=== PATIENT | female | born 1995 | race Caucasian/White ===

== ENCOUNTER 2020-07-25 17:02 | Emergency (ER) | payer MEDICAID, OTHER ==
[~2020-07-25] VITALS: Ht 154.9 cm; Wt 48.9 kg
[2020-07-25 17:07] VITALS: BP 111/62
--- NOTE | 2020-07-25 17:35 | ED General ---
General Chief Complaint: Respiratory Problems Stated Complaint: SOB Source of Information: Patient History of Present Illness Date Seen by Provider: Jul 25, 2020 Time Seen by Provider: 17:06 Initial Comments 25-year-old female that is G3, P2 at approximately 19 weeks estimated gestational age presents with complaints of shortness of breath. She states she gets short of breath when she is out in the sun or around hot air. This has happened before with asthma for her in the past. Since the weather was getting warmer and she was having more episodes she had gone to the clinic today. She saw the nurse makayla and they gave her a prescription for an [facility]. [facility] She had called her [facility] doctor after that and Dr. Jackie Lerma who she sees in [place] had advised her to be seen in the emergency department to be rechecked. Patient has no swelling in her legs, tachycardia, fever, chills, shortness of breath now, cough, sinus drainage or congestion. She states she is only having the shortness of breath when she is out in the heat. Allergies and Home Medications Allergies Coded Allergies: No Known Drug Allergies (Unverified , 07/25/20) Patient Home Medication List Home Medication List Reviewed: Yes Review of Systems Review of Systems Constitutional: No chills, No dizziness, No fever EENTM: No nose congestion, No nose pain Respiratory: No hemoptysis, No orthopnea, No phlegm; short of breath (When out in the heat); No stridor, No wheezing Cardiovascular: No chest pain Gastrointestinal: No abdominal pain, No nausea, No vomiting Genitourinary: No dysuria, No frequency Musculoskeletal: No muscle pain Skin: No change in color, No rash Psychiatric/Neurological: Denies Anxiety, Denies Headache, Denies Numbness, Denies Paresthesia Hematologic/Lymphatic: Denies Blood Clots Past Alpkigr-Zpubjz-Huljwb Hx Past Med/Social Hx: Reviewed Nursing Past Med/Soc Hx Patient Social History Alcohol Use: Denies Use 2nd Hand Smoke Exposure: No Recent Hopitalizations: No Past Medical History Surgeries: No Cardiac: Yes Heart Murmur Genitourinary: No Gastrointestinal: No Musculoskeletal: No Endocrine: Yes (thyroid "slightly high") Cancer: No Psychosocial: No Integumentary: No Blood Disorders: No Physical Exam Vital Signs Vital Signs - First Documented 07/25/20 17:07 Pulse 80 Resp 20 B/P (MAP) 111/62 (78) Pulse Ox 97 O2 Delivery Room Air Capillary Refill : Height, Weight, BMI Height: '" Weight: lbs. oz. kg; BMI Method: General Appearance: No Apparent Distress, WD/WN HEENT: PERRL/EOMI Neck: Full Range of Motion, Normal Inspection, Non Tender, Supple Respiratory: Chest Non Tender, Lungs Clear, Normal Breath Sounds, No Accessory Muscle Use, No Respiratory Distress Cardiovascular: Regular Rate, Rhythm, Normal Peripheral Pulses Gastrointestinal: No Pulsatile Mass, Non Tender, Soft Extremity: Normal Capillary Refill, Normal Inspection, Normal Range of Motion, Non Tender, No Calf Tenderness, No Pedal Edema Neurologic/Psychiatric: Alert, Oriented x3, No Motor/Sensory Deficits, Normal Mood/Affect, case sealer II-XII Norm as Tested Skin: Normal Color, Warm/Dry Progress/Results/Core Measures Suspected Sepsis SIRS Temperature: Pulse: Respiratory Rate: Blood Pressure / Mean: Results/Orders Vital Signs/I&O 07/25/20 17:07 Pulse 80 Resp 20 B/P (MAP) 111/62 (78) Pulse Ox 97 O2 Delivery Room Air Capillary Refill : Progress Note : Progress Note Reassured patient that she had no signs of more severe breathing issues. She h ad no tachycardia, fever, shortness of breath here in the ER, hypoxia, wheezing. Advised to use an inhaler with spacer. Check back with her OB doctor as scheduled next Thursday. If she starts having fevers, shortness of breath other than when she is exposed to hot air and heat, or she cannot catch her breath be seen sooner Departure Impression Primary Impression: Shortness of breath Additional Impressions: Incidental History of asthma Disposition: HOME, SELF-CARE Condition: Stable Departure-Patient Inst. Decision time for Depature: 17:34 Referrals: HOUSTON VERA APRN (PCP) Primary Care Physician [facility] (Family) Primary Care Physician Patient Instructions: Asthma and , How to Use a Spacer, Shortness of Breath, Adult ED Add. Discharge Instructions: Use spacer with your Albuterol inhaler to help with shortness of breath. You could use 2 puffs every 4-6 hours as needed for shortness of breath/wheezing. Check back with clinic as scheduled on ThursdayAugust 01. Follow up sooner if having more problems All discharge instructions reviewed with patient and/or family. Voiced understanding. CHAN ACOSTA MD Jul 25, 2020 17:35
== END 2020-07-25 17:43 | disposition home or self-care (01) ==
LOC: ER FS 17:04
DX: O26.892 Other specified pregnancy related conditions, second trimester (principal); R06.02 Shortness of breath; O99.512 Diseases of the respiratory system complicating pregnancy, second trimester; J45.909 Unspecified asthma, uncomplicated; Z3A.19 19 weeks gestation of pregnancy
CPT/HCPCS: 99282

== ENCOUNTER 2020-09-30 01:57 | Emergency (ER) | payer MEDICAID ==
[2020-09-30 02:26] LABS: BACTERIA,URINE FEW /HPF; BILIRUBIN,URINE NEGATIVE (NEGATIVE); CLARITY,URINE CLEAR; COLOR,URINE YELLOW; GLUCOSE, URINE (UA) NEGATIVE (NEGATIVE); KETONES,URINE NEGATIVE (NEGATIVE); LEUKOCYTE ESTERASE ,URINE 2+ (NEGATIVE); NITRITE,URINE NEGATIVE (NEGATIVE); PROTEIN,URINE NEGATIVE (NEGATIVE); URINE OTHER SPERM PRESENT /HPF
--- NOTE | 2020-09-30 02:28 | ED GU-Female ---
General Chief Complaint: OB > 20 WEEKS Stated Complaint: POSS LABOR/28 WEEKS Nursing Triage Note: Pt states she is 28 weeks and has been having more neo lucero contractions than normal tonight and wanted to get checked out Source: patient Exam Limitations: no limitations History of Present Illness Date Seen by Provider: Sep 30, 2020 Time Seen by Provider: 02:15 Initial Comments 25-year-old female otherwise healthy with no significant past medical history that is coming in 28 weeks by LMP and ultrasound due to contractions. She states this started around 11 PM, she feels in the front her abdomen, and they feel similar to Neo Lucero. She said however she is having greater than 5/h for the past 3 hours and she was referred to go to the emergency department. She denies any loss of fluid like her water broke or any vaginal bleeding. She is feeling good movement. This has been a healthy with no complications thus far. She gets her care at [facility] in [place]. Both her prior pregnancies were vaginal deliveries without issue, the babies did not stay in the NICU, and the second baby was just 1 day . She typically has a long labor. She states she is unsure if this feels like labor given it was so long ago. Denies any chest pain, shortness of breath, current abdominal pain, nausea, vomiting, diarrhea, fever, chills, weakness, numbness, or any other concerns. Allergies and Home Medications Allergies Coded Allergies: No Known Drug Allergies (Unverified , 07/25/20) Home Medications Nitrofurantoin Monohyd/M-Cryst 100 Mg Capsule, 100 MG PO BID Prescribed by: CLAUDIA SORENSEN on 09/30/20 0356 Patient Home Medication List Home Medication List Reviewed: Yes Review of Systems Review of Systems Constitutional: No fever EENTM: No blurred vision Respiratory: No cough Cardiovascular: No chest pain Gastrointestinal: No abdominal pain, No diarrhea, No nausea, No vomiting Genitourinary: denies burning, denies dysuria, denies frequency Musculoskeletal: No back pain Skin: No rash Psychiatric/Neurological: Denies Anxiety, Denies Depressed Endocrine: No Symptoms Reported Hematologic/Lymphatic: No Symptoms Reported All Other Systemes Reviewed Negative Unless Noted: Yes Past Xmqjzgx-Ynuopx-Ihueal Hx Patient Social History Tobacco Use?: No Use of E-Cig and/or Vaping dev: No Substance use?: No Alcohol Use?: No Pt feels they are or have been: No Past Medical History Surgeries: No Cardiac: Yes Heart Murmur Genitourinary: No Gastrointestinal: No Musculoskeletal: No Endocrine: Yes (thyroid "slightly high") Cancer: No Psychosocial: No Integumentary: No Blood Disorders: No Physical Exam Vital Signs Vital Signs - First Documented 09/30/20 02:02 Pulse 85 Resp 18 B/P (MAP) 106/72 (83) Pulse Ox 100 O2 Delivery Room Air Capillary Refill : Less Than 3 Seconds Height, Weight, BMI Height: '" Weight: lbs. oz. kg; 20.00 BMI Method: General Appearance: WD/WN, no apparent distress HEENT: PERRL/EOMI, normal ENT inspection, pharynx normal Neck: non-tender, full range of motion, supple, normal inspection Cardiovascular: regular rate, rhythm, no murmur Respiratory: chest non-tender, lungs clear, normal breath sounds, no respiratory distress, no accessory muscle use Gastrointestinal: normal bowel sounds, non tender, soft, other (gravid uterus) Pelvic: normal external exam, other (dilated to a 3, 0% effaced, -4 station) Back: normal inspection Extremities: normal range of motion, non-tender, no calf tenderness Neurologic/Psychiatric: no motor/sensory deficits, alert, normal mood/affect Skin: normal color, warm/dry Lymphatic: no adenopathy Progress/Results/Core Measures Suspected Sepsis SIRS Temperature: Pulse: 85 Respiratory Rate: 18 Blood Pressure 106 /72 Mean: 83 Results/Orders Lab Results Laboratory Tests Test 09/30/20 02:09 Range/Units Urine Color YELLOW Urine Clarity CLEAR Urine pH 8.0 5-9 Urine Specific Jay 1.010 L 1.016-1.022 Urine Protein NEGATIVE NEGATIVE Urine Glucose (UA) NEGATIVE NEGATIVE Urine Ketones NEGATIVE NEGATIVE Urine Nitrite NEGATIVE NEGATIVE Urine Bilirubin NEGATIVE NEGATIVE Urine Urobilinogen 0.2 < = 1.0 MG/DL Urine Leukocyte Esterase 2+ H NEGATIVE Urine RBC (Auto) NEGATIVE NEGATIVE Urine RBC NONE /HPF Urine WBC 5-10 H /HPF Urine Squamous Epithelial Cells 5-10 /HPF Urine Crystals NONE /LPF Urine Bacteria FEW H /HPF Urine Casts NONE /LPF Urine Mucus NEGATIVE /LPF Urine Other SPERM PRESENT /HPF Urine Culture Indicated YES My Orders Orders - CLAUDIA SORENSEN MD Ua Culture If Indicated (09/30/20 02:12) Urine Culture (09/30/20 02:09) Vital Signs/I&O 09/30/20 09/30/20 02:02 03:36 Pulse 85 85 Resp 18 18 B/P (MAP) 106/72 (83) 106/72 (83) Pulse Ox 100 100 O2 Delivery Room Air Room Air Capillary Refill : Less Than 3 Seconds Blood Pressure Mean: 83 Progress Note : Progress Note 25-year-old female with above history coming in with what she feels to be contractions. ABCs were intact and vitals were stable on presentation. Spec ifically, blood pressure is not elevated. Abdomen is gravid but nontender. I did a [id number] ultrasound showing a heart rate in the 140s for the baby with head down, and no evidence of placenta previa. I did a sterile pelvic exam with no pooling of fluids and cervix appeared to be 3cm. Rechecked again over an hour later and it appeared the same. She is not having consistent organized contractions and this is not consistent with labor at this time. We discussed shared decision making and I gave her the option to transport her to her hospital for extended monitoring vs going home. She would like to go home at this time, and will call 911 or come back if things change. I believe this is an appropriate decision. I did discuss that even if she does not come back here, she should call her OB first thing in the next couple of hours in the morning time to discuss her care and potentially be seen. I believe she is stable for discharge. She was sent home with strict return precautions. Of note, I reviewed her urine and it does have bacteria in it with leukocyte Estrace. She was not having any dysuria, frequency, or any urinary symptoms. This would be classified as asymptomatic bacteriuria in . She does not have any allergies. Sent Macrobid to her pharmacy at [facility] in [place]. Attempted to call the number on the chart to let her know I sent this prescription in, and a voicemail picked up. We will try again later. Called again in AM and left a voicemail that there is an antibiotic at her pharmacy. Departure Impression Primary Impression: Neo Lucero contractions Additional Impressions: Qualified Codes: Z3A.28 - 28 weeks gestation of Asymptomatic bacteriuria during Disposition: HOME, SELF-CARE Condition: Stable Departure-Patient Inst. Decision time for Depature: 03:39 Referrals: HOUSTON VERA APRN (PCP) Primary Care Physician [facility] (Family) Primary Care Physician Patient Instructions: Lowering Your Risk of , Labor (DC) Add. Discharge Instructions: You were seen in the emergency department as you were feeling contractions. The baby's heart rate is good, it does not appear your water has broken, and your cervix stayed the same size meaning you are not in labor at this time. If your contractions become more regular, more painful, you have a lots of fluids like your water broke, you have any vaginal bleeding, or you have any concerns then please call 911 or present to the emergency department. Please call your OB first thing in the morning today to discuss your case and to see if they would like to do any extended monitoring. Take today easy, drink plenty of fluids, and you can take Tylenol for pain. All discharge instructions reviewed with patient and/or family. Voiced understanding. Scripts Nitrofurantoin Monohyd/M-Cryst (Macrobid 100 mg Capsule) 100 Mg Capsule 100 MG PO BID for 7 Days, #14 TAB 0 Refills Prov: CLAUDIA SORENSEN MD 09/30/20 CLAUDIA SORENSEN MD Sep 30, 2020 02:28
[2020-09-30 03:36] VITALS: BP 106/72
[2020-09-30] MEDS ORDERED: NITR-65 PO (03:56)
== END 2020-09-30 03:42 | disposition home or self-care (01) ==
LOC: EDUNIT# 01:57 → ER FS 01:59
DX: O47.03 False labor before 37 completed weeks of gestation, third trimester (principal); O23.93 Unspecified genitourinary tract infection in pregnancy, third trimester; R82.71 Bacteriuria; Z3A.28 28 weeks gestation of pregnancy
CPT/HCPCS: 81000; 87088